=== PATIENT | female | born 2000 | race Caucasian/White ===

== ENCOUNTER → 2023-06-11 11:50 | Outpatient (REF) | payer OTHER, SELFPAY ==
[2023-06-11 13:06] LABS: % Basophils 1.6 % (0-2); % Eosinophils 2.1 % (0-6); % Immature Granulocytes 0.2 % (0-0.5); % Lymphocytes 30.2 % (20.5-51.1); % Monocytes 12.8 % (1.7-9.3); % Neutrophils 53.1 % (42.2-75.2); Absolute Basophils 0.1 10^3/uL (0-0.2); Absolute Eosinophils 0.1 10^3/uL (0-0.7); Absolute Lymphocytes 1.3 10^3/uL (1.2-3.4); Absolute Monocytes 0.6 10^3/uL (0.1-0.6); Absolute Neutrophils 2.3 10^3/uL (1.4-6.5); Hematocrit 32.8 % (37.0-47.0); Hemoglobin 10.9 g/dL (12.0-16.0); Mean Corp Hgb Conc. 33.2 g/dL (33.0-37.0); Mean Corpuscular Hgb 26.7 pg (27.0-31.0); Mean Corpuscular Volume 80.2 fL (81.0-99.0); Mean Platelet Volume 10.3 fL (7.4-10.4); Nucleated Red Blood Cells % 0 %; Platelet Count 319 10^3/uL (130-400); Red Blood Cell Count 4.09 10^6/uL (4.20-5.40); Red Cell Dist. Width 14.6 % (11.5-14.5); White Blood Cell Count 4.3 10^3/uL (4.8-10.8)
[2023-06-11 13:54] LABS: Blood Urea Nitrogen 9 mg/dl (7-17); Carbon Dioxide 24 mmol/L (22-30); Chloride 106 mmol/L (98-107); Glucose 70 mg/dl (70-99); Iron 139 ug/dl (37-170); Potassium 4.2 mmol/L (3.5-5.1); Sodium 140 mmol/L (135-145); eGFR > 60.00
[2023-06-11 14:03] LABS: Percent Saturation 30 % (20-50); Total Iron Binding Capacity 457 ug/dl (265-497)
[2023-06-11 14:22] LABS: Ferritin 10.1 ng/ml (6.24-137)
[2023-06-11 14:37] LABS: Vitamin B12 441 pg/ml (239-931)
[2023-06-13 13:14] LABS: Folate 7.6 ng/ml (2.76-20)
== END ==
LOC: REG 11:50
PROVIDERS: ATTENDING PHYSICIAN Nurse Practitioner Family
DX: D50.8 Other iron deficiency anemias (principal); R53.82 Chronic fatigue, unspecified
CPT/HCPCS: 36415; 80048; 82306; 82607; 82728; 82746; 83540; 83550; 85025

== ENCOUNTER 2023-07-06 12:32 | Emergency (ER) | payer OTHER, SELFPAY ==
[2023-07-06 12:40] VITALS: BP 130/80
--- NOTE | 2023-07-06 13:12 | ED.GENMED ---
History of Present Illness
General
Chief Complaint: Eye Problems
Source: patient and family
Exam Limitations: none
Time Seen by Provider: 07/06/23 12:54
Nursing documentation reviewed up to this point in time: agreed with
Travel History
Have you had any contact with someone who has COVID-19?: No
Do you have any symptoms of coronavirus? Fever > 100 degrees, chills, cough, shortness of breath, sore throat, loss of taste or smell, muscle aches, or headache?: No
History of Present Illness
History of Present Illness:
22-year-old female with past medical history of anemia presenting to the emergency department today with concerns of 1 day of right-sided redness swelling irritation watery discharge. Denies significant changes in vision denies known injury to the
area. 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 Denies specific headache. Has had some fatigue does have a history of anemia specific chest pain shortness of breath.
Review of Systems
Review of Systems
Allergies reviewed?: Yes
All Other Systems: ROS reviewed and negative except as documented in HPI and ROS
Phy Exam
Physical Exam
Physical Exam:
GENERAL: Alert , in no apparent distress
EYE: Diffusely injected conjunctiva to the right side ciliary sparing normal extraocular movements and pupillary reaction. Normal eye pressure in the teens pupils equal and reactive
NECK: Supple, no significant adenopathy.
ENT: o/p clr, mmm.
CARDIAC: Regular rate and rhythm .
LUNGS: Clear breath sounds bilaterally, no acute respiratory distress, no wheezes/rales/rhonchi
ABDOMEN: Soft, without focal tenderness, no r/g, no cvat
NEUROLOGICAL: Alert and oriented, no focal neuro deficits
SKIN: Warm and dry, skin intact.
MUSCULOSKELETAL: No edema, well perfused.
PSYCH: Normal and appropriate interaction.
Course
Orders/Labs/Results
Orders:
Orders
07/06/23 13:26
BMP [Basic Metabolic Panel] Urgent
CBC/With Diff [Complete Blood Count/With Diff] Urgent
07/06/23 13:57
Erythromycin (Ilotycin) [Erythromycin 0.5% Ophthalmic Ointment] See Dose Instructions OPHTH NOW STA
Abnormal Lab Results
07/06/23
13:26
Hgb 11.7 L g/dL
(12.0-16.0)
Hct 35.4 L %
(37.0-47.0)
MCV 77.8 L fL
(81.0-99.0)
MCH 25.7 L pg
(27.0-31.0)
BUN 6 L mg/dl
(7-17)
Creatinine 0.5 L mg/dL
(0.6-1.0)
07/06/23 13:26
07/06/23 13:26
Vital Signs
Initial and Last Documented VS:
Initial Vital Signs
Temp Pulse Resp BP Pulse Ox
98.0 F 100 16 130/80 98
07/06/23 12:40 07/06/23 12:40 07/06/23 12:40 07/06/23 12:40 07/06/23 12:40
Last Documented Vital Signs
Temp Pulse Resp BP Pulse Ox
98.0 F 100 16 130/80 98
07/06/23 12:40 07/06/23 12:40 07/06/23 12:40 07/06/23 12:40 07/06/23 12:40
MDM/Problems Addressed
MDM/Problems Addressed:
22-year-old female presenting to the emergency department today with concerns of right-sided eye redness irritation starting last night. No significant vision change appears to be ciliary sparing normal pupil reaction normal anterior chamber no
foreign body seen and no signs of corneal abrasion. Plan for treatment with antibiotic possible bacterial conjunctivitis though viral conduct is also possible. Additionally she did claim to have some general fatigue and does have a history of
anemia labs were obtained that did not show any emergent findings. Otherwise stable for discharge return precautions given.
*Critical Care Note
Total Time (30-74mins, 75-104mins- exclusive of procedures): Not Applicable
ED Attending Note
-
Portions of this chart may have been created with voice recognition software.� Occasional wrong word or��sound alike� substitutions may have occurred due to the inherent limitations of voice recognition software.
Discharge Plan
Departure
Patient Disposition: Home (Routine Discharge)
Date of Disposition: 07/06/23
Time of Disposition: 14:10
Patient with high blood pressure during this ER visit?: No
Condition: Good
Covid-19: Not Applicable
Discharge Problem:
Conjunctivitis
Instructions: Conjunctivitis (Pinkeye) (DC)
Prescriptions:
New
Naphcon-A 0.025-0.3 % drops
1 drp ophthalmic (eye) QID PRN (Reason: allergy symptoms) Qty: 15 0RF
Referrals:
Senait Galvan CRNP [Family Provider] -
Activity Restrictions/Additional Instructions:
You came to emergency department today with concerns of what appears to be conjunctivitis. Please use the prescribed medications and this should hopefully improve over the next few days. Return to the department for any worsening, new or
concerning symptoms.
Interventions
Interventions:
*ED COVID-19 Vaccine History Last Done: 07/06/23 12:40
[2023-07-06 13:41] LABS: % Basophils 0.7 % (0-2); % Eosinophils 1.8 % (0-6); % Immature Granulocytes 0.4 % (0-0.5); % Lymphocytes 21.2 % (20.5-51.1); % Monocytes 9.2 % (1.7-9.3); % Neutrophils 66.7 % (42.2-75.2); Absolute Eosinophils 0.1 10^3/uL (0-0.7); Absolute Lymphocytes 1.2 10^3/uL (1.2-3.4); Absolute Monocytes 0.5 10^3/uL (0.1-0.6); Absolute Neutrophils 3.7 10^3/uL (1.4-6.5); Hematocrit 35.4 % (37.0-47.0); Hemoglobin 11.7 g/dL (12.0-16.0); Mean Corp Hgb Conc. 33.1 g/dL (33.0-37.0); Mean Corpuscular Hgb 25.7 pg (27.0-31.0); Mean Corpuscular Volume 77.8 fL (81.0-99.0); Mean Platelet Volume 10.3 fL (7.4-10.4); Nucleated Red Blood Cells % 0 %; Platelet Count 229 10^3/uL (130-400); Red Blood Cell Count 4.55 10^6/uL (4.20-5.40); Red Cell Dist. Width 14.5 % (11.5-14.5); White Blood Cell Count 5.5 10^3/uL (4.8-10.8)
[2023-07-06 13:52] LABS: Blood Urea Nitrogen 6 mg/dl (7-17); Carbon Dioxide 26 mmol/L (22-30); Chloride 105 mmol/L (98-107); Glucose 95 mg/dl (70-99); Potassium 4.2 mmol/L (3.5-5.1); Sodium 138 mmol/L (135-145); eGFR > 60.00
[2023-07-06] MEDS: ERYTHROMYCIN 0.5% OPHTHALMIC OINTMENT 1 APPLIC OPHTH (14:18)
== END 2023-07-06 14:20 | disposition home or self-care (01) ==
LOC: EMR 12:32
PROVIDERS: Physician Assistant; EMERGENCY PHYSICIAN Emergency Medicine; FAMILY PHYSICIAN Nurse Practitioner Family
DX: H10.9 Unspecified conjunctivitis (principal)
CPT/HCPCS: 99282; 80048; 85025

== ENCOUNTER → 2024-03-09 10:32 | Outpatient (REF) | payer OTHER, SELFPAY | LOC: HWRAD 10:32 | PROVIDERS: ATTENDING PHYSICIAN Nurse Practitioner Women's Health; FAMILY PHYSICIAN Nurse Practitioner Family | DX: R10.2 Pelvic and perineal pain (principal) | CPT/HCPCS: 76830; 76856 ==

== ENCOUNTER 2024-11-05 12:53 | Outpatient (RCR) | payer BC, SELFPAY ==
[2024-10-28] MEDS: VENOFER 110 MG IV (13:34)
[2024-10-28] MEDS: NSS 250 IV (13:34)
[2024-10-28 13:45] VITALS: BP 103/70
[2024-10-28 14:43] VITALS: BP 92/55
[2024-11-05] MEDS: NSS 250 IV (13:24)
[2024-11-05] MEDS: VENOFER 110 MG IV (13:25)
[2024-11-05 13:28] VITALS: BP 93/59
[2024-11-05 14:55] VITALS: BP 93/55
== END 2024-11-16 13:07 | disposition home or self-care (01) ==
LOC: OID 12:53
PROVIDERS: ATTENDING PHYSICIAN Nurse Practitioner Adult Health
DX: D50.9 Iron deficiency anemia, unspecified (principal)
CPT/HCPCS: 96361; 96365; J1756

== ENCOUNTER 2024-11-30 12:50 | Outpatient (RCR) | payer BC, SELFPAY ==
[2024-11-19 13:20] VITALS: BP 110/64
[2024-11-19] MEDS: VENOFER 110 MG IV (13:32)
[2024-11-19] MEDS: NSS 250 IV (13:32)
[2024-11-30 13:00] VITALS: BP 97/59
[2024-11-30] MEDS: NSS 250 IV (13:14)
[2024-11-30] MEDS: VENOFER 110 MG IV (13:15)
[2024-11-30 14:20] VITALS: BP 91/58
== END 2024-12-19 23:59 | disposition home or self-care (01) ==
LOC: OID 12:50
PROVIDERS: ATTENDING PHYSICIAN Nurse Practitioner Adult Health
DX: D50.9 Iron deficiency anemia, unspecified (principal); T45.4X5A Adverse effect of iron and its compounds, initial encounter; Y93.89 Activity, other specified
CPT/HCPCS: 96365; 96367; J1756

== ENCOUNTER 2024-12-30 13:45 | Outpatient (RCR) | payer BC, SELFPAY ==
[2024-12-30 13:50] VITALS: BP 107/70
[2024-12-30 14:03] LABS: Hematocrit 35.4 % (37.0-47.0); Hemoglobin 12.0 g/dL (12.0-16.0); Mean Corp Hgb Conc. 33.9 g/dL (33.0-37.0); Mean Corpuscular Volume 80.5 fL (81.0-99.0); Platelet Count 222 10^3/uL (130-400); Red Cell Dist. Width 16.0 % (11.5-14.5)
[2024-12-30] MEDS: VENOFER 110 MG IV (14:06)
[2024-12-30] MEDS: NSS 250 IV (14:06)
[2024-12-30 15:17] VITALS: BP 93/54
== END 2024-12-31 08:05 | disposition home or self-care (01) ==
LOC: OID 13:45
PROVIDERS: ATTENDING PHYSICIAN Nurse Practitioner Adult Health
DX: D50.9 Iron deficiency anemia, unspecified (principal); T45.4X5A Adverse effect of iron and its compounds, initial encounter; Y93.89 Activity, other specified
CPT/HCPCS: 85025; 96365; J1756